=== PATIENT | female | born 1940 ===

== ENCOUNTER → 2021-08-18 | Day surgery (SDC) | payer MEDICARE, OTHER ==
[~2021-08-18] VITALS: Ht 177.8 cm; Wt 51.7 kg
[~2021-08-18] MED LIST: ASPIRIN81 MG PO; CARVEDILOL6.25 MG PO; DULCOLAX5 MG PO; EFFEXOR XR 75 M75 MG PO; ELIQUIS2.5 MG PO; ENTRESTO 24 MG1 EACH PO; FOLIC ACID 1 MG1 MG PO; GLIPIZIDE ER5 MG PO; HYDROCODON-ACE1 EAC2 PO; HYDROCODON-ACE1 EAC4 PO; IPRAT-ALBUT 0.5-3 ML INH; ISOSORBIDE MONO30 MG PO; LEVOTHYROXINE75 MCG PO; METOCLOPRAMIDE10 MG PO; OMEPRAZOLE40 MG PO; ONDANSETRON HCL4 MG PO; PROTONIX 40 MG40 M1 PO; RANOLAZINE ER500 MG PO
[2021-08-18 09:20] LABS: HEMOGLOBIN 10.7 gm/dl (12.3-15.3); RED BLOOD COUNT 3.85 M/UL (4.00-5.10); WHITE BLOOD COUNT 6.9 K/UL (4.5-11.0)
== END | disposition home or self-care (01) ==
LOC: OR 08:28
PROVIDERS: Orthopaedic Surgery
DX: T81.41XA Infection following a procedure, superficial incisional surgical site, initial encounter (principal); J44.9 Chronic obstructive pulmonary disease, unspecified; Z79.82 Long term (current) use of aspirin; Z79.01 Long term (current) use of anticoagulants; Z20.822 Contact with and (suspected) exposure to COVID-19; I25.2 Old myocardial infarction; Z95.810 Presence of automatic (implantable) cardiac defibrillator; I12.9 Hypertensive chronic kidney disease with stage 1 through stage 4 chronic kidney disease, or unspecified chronic kidney disease; E11.22 Type 2 diabetes mellitus with diabetic chronic kidney disease; N18.9 Chronic kidney disease, unspecified
CPT/HCPCS: 80048; 85025; 87070; 87205; J0690; J1100; J1885; J2250; J2405; J2704; J3010; J3370; J7030; J7120